=== PATIENT | male | born 1960 | race Caucasian/White ===

== ENCOUNTER 2023-07-25 08:17 | Outpatient (REF) | payer OTHER, SELFPAY ==
[2023-07-25 22:39] LABS: PSA, Screening 4.7 ng/mL (<=4.5)
== END 2023-07-25 08:18 | disposition home or self-care (01) ==
LOC: NCHCN 08:17
PROVIDERS: Visit Provider Family Medicine
DX: R97.20 Elevated prostate specific antigen [PSA] (principal)
CPT/HCPCS: 84153

== ENCOUNTER 2023-08-09 16:26 | Outpatient (REF) | payer OTHER, SELFPAY ==
[2023-08-11 11:47] LABS: IgA 207 mg/dL (85-499); Interpretation (See Note); Tissue Transglutaminase IgA <4.0 CU (<20.0)
== END 2023-08-09 16:27 | disposition home or self-care (01) ==
LOC: NCHCN 16:26
PROVIDERS: Visit Provider Family Medicine
DX: K52.9 Noninfective gastroenteritis and colitis, unspecified (principal)
CPT/HCPCS: 82784; 83516

== ENCOUNTER 2024-03-26 14:52 | Outpatient (REF) | payer BC, SELFPAY ==
[2024-03-26 15:22] LABS: Abs Immature Grans 0.04 10^3/uL (0.0-0.06); Absolute Basophil Count 0.07 10^3/uL (0.0-0.2); Absolute Eosinophil Count 0.25 10^3/uL (0.0-0.7); Absolute Lymphocyte Count 2.22 10^3/uL (1.2-3.4); Absolute Monocyte Count 0.56 10^3/uL (0.1-0.8); Absolute Neutrophil Count 4.48 10^3/uL (1.2-6.7); Basophils % 0.9 %; Eosinophils % 3.3 %; HCT 47.5 % (40.0-50.0); HGB 15.4 g/dL (13.5-17.5); Immature Grans % 0.5 %; Lymphocytes % 29.1 %; MCH 29.7 pg (27.0-33.0); MCV 92 fL (80-95); MPV 9.2 fL (8.0-11.0); Monocytes % 7.3 %; Neutrophils % 58.9 %; Platelet Count 267 10^3/uL (130-400); RBC 5.18 10^6/uL (4.36-5.78); RDW 12.1 % (11.8-14.1); WBC 7.62 10^3/uL (4.4-10.8)
[2024-03-26 15:23] LABS: MCHC 32.4 % (32.0-36.0)
[2024-03-26 15:27] LABS: ALT 54 U/L (16-63); AST 35 U/L (15-37); Albumin 3.7 g/dL (3.4-5.0); Alkaline Phosphatase 69 U/L (46-116); Anion Gap 4.8 mmol/L (3-11); BUN 12 mg/dL (7-18); Bilirubin, Total 0.38 mg/dL (0.2-1.0); CO2 32.2 mmol/L (21.0-32.0); Calcium 9.2 mg/dL (8.5-10.1); Chloride 104 mmol/L (98-107); Estimated GFR 84.57 (mL/min/1.73m2); Glucose 89 mg/dL (74-106); Potassium 4.6 mmol/L (3.5-5.1); Sodium 141 mmol/L (136-145); Total Protein 7.3 g/dL (6.4-8.2); Vitamin B12 399 pg/mL (193-986)
[2024-03-26 15:39] LABS: Lipase 34 U/L (<78)
== END 2024-03-26 14:53 | disposition home or self-care (01) ==
LOC: NCHCN 14:52
PROVIDERS: PCP Family Medicine; Visit Provider Family Medicine
DX: R10.9 Unspecified abdominal pain (principal); R19.5 Other fecal abnormalities
CPT/HCPCS: 80053; 83690; 82607; 85025

== ENCOUNTER 2024-06-03 12:41 | Outpatient (REF) | payer BC, SELFPAY ==
[2024-06-03 16:31] LABS: Anion Gap 6.7 mmol/L (3-11); BUN 14 mg/dL (7-18); CO2 30.3 mmol/L (21.0-32.0); CREATININE 0.9 mg/dL (0.70-1.30); Calcium 9.6 mg/dL (8.5-10.1); Chloride 103 mmol/L (98-107); Estimated GFR 95.97 (mL/min/1.73m2); Glucose 118 mg/dL (74-106); Potassium 4.5 mmol/L (3.5-5.1); Sodium 140 mmol/L (136-145)
== END 2024-06-03 12:42 | disposition home or self-care (01) ==
LOC: NCHCN 12:41
PROVIDERS: PCP Family Medicine; Visit Provider Family Medicine
DX: I10 Essential (primary) hypertension (principal)
CPT/HCPCS: 80048

== ENCOUNTER 2025-01-16 13:08 | Outpatient (REF) | payer BC, SELFPAY ==
[2025-01-16 14:53] LABS: Anion Gap 6.4 mmol/L (3-11); BUN 17 mg/dL (7-18); CO2 29.6 mmol/L (21.0-32.0); Calcium 9.0 mg/dL (8.5-10.1); Chloride 101 mmol/L (98-107); Estimated GFR 95.97 (mL/min/1.73m2); Glucose 106 mg/dL (74-106); Potassium 4.1 mmol/L (3.5-5.1); Sodium 137 mmol/L (136-145)
== END 2025-01-16 13:09 | disposition home or self-care (01) ==
LOC: NCHCN 13:08
PROVIDERS: PCP Family Medicine; Visit Provider Family Medicine
DX: I10 Essential (primary) hypertension (principal)
CPT/HCPCS: 80048